=== PATIENT | female | born 1975 | race Caucasian/White ===

== ENCOUNTER 2019-08-28 17:23 | Inpatient (IN) | payer OTHER ==
[~2019-08-28] VITALS: Ht 165.1 cm; Wt 86.4 kg
[2019-08-28] MEDS ORDERED: ALPR1TAB7 PO ×2 (17:41)
[2019-08-28] MEDS ORDERED: LEVO88TA4 PO (17:41)
[2019-08-28] MEDS ORDERED: ALPR0.5T8 PO (17:41)
[2019-08-28] MEDS ORDERED: RISP2 PO (17:41)
[2019-08-28] MEDS ORDERED: VENL-193 PO (17:41)
[2019-08-28] MEDS ORDERED: VENL-67 PO (17:48)
[2019-08-28 20:48] LABS: BASOPHILS % (AUTO) 0.3 % (0.0-2.0); EOSINOPHILS % (AUTO) 0.9 % (1.0-6.0); HEMATOCRIT 30.2 % (36-46); HEMOGLOBIN 9.9 g/dL (12.0-16.0); LYMPHOCYTES # (AUTO) 3.1 K/uL (1.0-4.8); LYMPHOCYTES % (AUTO) 29.4 % (22.0-44.0); MEAN CORPUSCULAR HEMOGLOBIN 23.5 pg (26.0-34.0); MEAN CORPUSCULAR HGB CONC 32.8 G/dL (31.0-37.0); MEAN CORPUSCULAR VOLUME 72 fL (80-100); MONOCYTES # (AUTO) 0.4 K/uL (0.1-1.0); MONOCYTES % (AUTO) 4.1 % (2.0-9.0); NEUTROPHILS # (AUTO) 6.8 K/uL (1.8-7.7); NEUTROPHILS % (AUTO) 65.3 % (40.0-70.0); PLATELET COUNT (AUTO) 469 K/uL (150-450); RED BLOOD CELL COUNT(AUTO) 4.22 MIL/uL (4.00-5.20); RED CELL DISTRIBUTION WIDTH 18.4 % (11.5-14.5)
[2019-08-28 21:00] LABS: ANION GAP 10 mmol/L (8-16); CALCIUM, TOTAL 8.4 mg/dL (8.8-10.5); CARBON DIOXIDE 28 mmol/L (22-29); CHLORIDE 105 mmol/L (98-107); CREATININE 0.83 mg/dL (0.60-1.30); GLOMERULAR FILTR. RATE CALC > 60 mL/min (>60); GLUCOSE,RANDOM 86 mg/dL (70-110); POTASSIUM 3.8 mmol/L (3.5-5.1); SODIUM SERUM 143 mmol/L (136-145); UREA NITROGEN, BLOOD 10 mg/dL (7-18)
[2019-08-28] MEDS ORDERED: [UNRECOGNIZED DRUG - CODE] NASAL (21:14)
[2019-08-28] MEDS ORDERED: BENZ-51 PO (21:14)
[2019-08-28] MEDS ORDERED: PRED20 PO (21:14)
[2019-08-28 21:15] LABS: ALANINE AMINOTRANSFERASE 17 U/L (12-78); ALBUMIN 3.4 g/dL (3.4-5.0); ALKALINE PHOSPHATASE 53 U/L (46-116); ASPARTATE AMINOTRANSFERASE 11 U/L (15-37); HCG,QUANTITATIVE < 1 mIU/mL (0-6); TOTAL PROTEIN, SERUM 7.2 g/dL (6.4-8.2)
[2019-08-28 21:31] LABS: AMPHET/METH SCREEN,URINE NEGATIVE (NEGATIVE); BARBITURATE SCREEN, URINE NEGATIVE (NEGATIVE); BENZODIAZEPINES SCREEN,URINE POSITIVE (NEGATIVE); CANNABINOID SCREEN,URINE NEGATIVE (NEGATIVE); COCAINE SCREEN,URINE NEGATIVE (NEGATIVE); METHADONE SCREEN, URINE NEGATIVE (NEGATIVE); OPIATE SCREEN,URINE NEGATIVE (NEGATIVE)
[2019-08-28 21:33] LABS: PHENCYCLIDINE SCREEN,URINE NEGATIVE (NEGATIVE)
[2019-08-28 21:36] LABS: FREE T4 (FREE THYROXINE) 0.77 ng/dL (0.76-1.46); THYROID STIMULATING HORMONE 2.29 uIU/mL (0.36-3.74)
[2019-08-28 21:37] LABS: BILIRUBIN,TOTAL 0.1 mg/dL (0.1-1.0)
[2019-08-28] MEDS ORDERED: SODIUM CHLORIDE 0.9% 1,000 ML IV ONE (23:00)
[2019-08-29] MEDS: ACETAMINOPHEN 325 MG TABLET PO PRN ×4 (02:59→20:39)
[2019-08-29] MEDS: DOCUSATE SODIUM 100 MG CAPSULE PO SCH ×2 (08:38→20:12)
[2019-08-29] MEDS: FAMOTIDINE 20 MG TABLET PO SCH (08:38)
[2019-08-29] MEDS: LORazepam 2 MG/ML VIAL IM PRN ×3 (10:51→20:44)
[2019-08-29 10:58] VITALS: BP 97/58
[2019-08-29 12:05] VITALS: BP 118/75
[2019-08-29] MEDS ORDERED: INFLUENZA VIRUS VACCINE QVS 2019-20 (3YR+)/PF 60 MCG/0.5 ML SYRINGE IM ONE (15:45)
[2019-08-29] MEDS ORDERED: PNEUMOCOCCAL VACCINE POLYVALENT 0.5 ML VIAL [PPSV23] IM ONE (15:45)
[2019-08-29] MEDS: ONDANSETRON HCL 4 MG/2 ML VIAL IVP PRN ×2 (16:12→23:24)
[2019-08-29 17:11] VITALS: BP 121/78
[2019-08-29 20:24] VITALS: BP 106/68
[2019-08-29 23:13] VITALS: BP 121/76
[2019-08-30] MEDS: RisperiDONE 2 MG TABLET PO SCH ×2 (00:02→20:06)
[2019-08-30] MEDS: ACETAMINOPHEN 325 MG TABLET PO PRN ×4 (02:50→20:06)
[2019-08-30] MEDS: LORazepam 2 MG/ML VIAL IM PRN ×2 (02:51→06:54)
[2019-08-30 04:58] VITALS: BP 106/62
[2019-08-30 07:48] VITALS: BP 117/70
[2019-08-30] MEDS: DOCUSATE SODIUM 100 MG CAPSULE PO SCH ×3 (08:25→20:03)
[2019-08-30] MEDS: FAMOTIDINE 20 MG TABLET PO SCH (08:25)
[2019-08-30] MEDS: ONDANSETRON HCL 4 MG/2 ML VIAL IVP PRN ×2 (08:33→13:41)
[2019-08-30 16:29] VITALS: BP 104/54
[2019-08-30 19:32] VITALS: BP 104/65
[2019-08-31 00:42] VITALS: BP 117/69
[2019-08-31] MEDS: ACETAMINOPHEN 325 MG TABLET PO PRN ×2 (03:45→08:50)
[2019-08-31] MEDS: ONDANSETRON HCL 4 MG/2 ML VIAL IVP PRN (03:58)
[2019-08-31 05:19] VITALS: BP 113/69
[2019-08-31] MEDS ORDERED: LEVOTHYROXINE SODIUM 88 MCG TABLET PO SCH (06:30)
[2019-08-31 08:01] VITALS: BP 135/78
[2019-08-31] MEDS: DOCUSATE SODIUM 100 MG CAPSULE PO SCH ×2 (08:50→08:54)
[2019-08-31] MEDS: FAMOTIDINE 20 MG TABLET PO SCH (08:50)
== END 2019-08-31 11:45 | disposition home or self-care (01) | DRG 776 ==
LOC: EMS 17:24 → 5S 08-29 05:00 → 6N 08-29 10:21
PROVIDERS: ADMIT Internal Medicine; ATTEND Internal Medicine
DX: F13.239 Sedative, hypnotic or anxiolytic dependence with withdrawal, unspecified (principal); F31.32 Bipolar disorder, current episode depressed, moderate; E03.9 Hypothyroidism, unspecified; F19.20 Other psychoactive substance dependence, uncomplicated; J44.9 Chronic obstructive pulmonary disease, unspecified; F17.210 Nicotine dependence, cigarettes, uncomplicated; F41.9 Anxiety disorder, unspecified; Z91.19 Patient's noncompliance with other medical treatment and regimen; Z28.21 Immunization not carried out because of patient refusal
CPT/HCPCS: 84439; 84443; G0480; J2060; J2405